=== PATIENT | male | born 1970 | race Caucasian/White ===

== ENCOUNTER 2019-11-25 01:37 | Emergency (ER) | payer BC ==
[2019-11-25] MEDS ORDERED: Acetaminophen/oxyCODONE 325-5 MG Tab PO ONE ×2 (01:38→02:32)
[2019-11-25 01:41] VITALS: PULSE 85
[2019-11-25] MEDS ORDERED: Take Home: Acetaminophen/oxyCODONE 325-5 MG, 2 Tab Pack PO ONE (02:32)
[2019-11-25 02:38] VITALS: BP 125/67
--- NOTE | 2019-11-25 02:43 | EDM.PDOC ---
ED HPI GENERAL MEDICAL PROBLEM - General Chief Complaint: Lower Extremity Injury/Pain Stated Complaint: L)ankle injury Time Seen by Provider: 11/25/19 01:56 Source of Information: Reports: Patient, Family History Limitations: Reports: No Limitations - History of Present Illness INITIAL COMMENTS - FREE TEXT/NARRATIVE: Patient to the emergency department where he advised he slipped and fell approximately 1 hour prior to arrival. And has pain and deformity to the left ankle. The patient denies hitting his head there is no loss of consciousness. The patient denies any knee pain denies any hip pain the patient denies any neck or back pain. The patient denies any numbness or tingling to the extremity. The patient has no other complaints Onset: Today Duration: Hour(s): Location: Reports: Lower Extremity, Left Quality: Reports: Ache, Throbbing Severity: Moderate Improves with: Reports: None Worsens with: Reports: Movement Context: Reports: Other (Slipped and fell on the ice) Associated Symptoms: Denies: Chest Pain, Headaches, Nausea/Vomiting, Shortness of Breath, Syncope, Weakness Treatments HEEL TURNER: Reports: Other (see below) (No treatment) Left Ankle Pain Score (Numeric/FACES): 6 - Related Data Allergies Allergy/AdvReac Type Severity Reaction Status Date / Time No Known Allergies Allergy Verified 11/25/19 01:42 Home Meds: Home Meds . [No Known Home Meds] 11/25/19 [History] Past Medical History - Past Health History Medical/Surgical History: Denies Medical/Surgical History - Past Surgical History Other HEENT Surgeries/Procedures: INNER EAR SURGERY Social & Family History - Family History Family Medical History: Noncontributory - Tobacco Use Smoking Status *Q: Never Smoker - Caffeine Use Caffeine Use: Reports: None - Recreational Drug Use Recreational Drug Use: No Review of Systems - Review of Systems Review Of Systems: See Below Constitutional: Reports: No Symptoms Eyes: Reports: No Symptoms Ears: Reports: No Symptoms Nose: Reports: No Symptoms Mouth/Throat: Reports: No Symptoms Respiratory: Reports: No Symptoms Cardiovascular: Reports: No Symptoms GI/Abdominal: Reports: No Symptoms Genitourinary: Reports: No Symptoms Musculoskeletal: Reports: Joint Pain (Left ankle). Denies: Neck Pain, Back Pain Skin: Reports: No Symptoms. Denies: Bruising, Rash, Erythema Neurological: Reports: No Symptoms. Denies: Headache, Numbness, Tingling, Weakness Psychiatric: Reports: No Symptoms ED EXAM, GENERAL - Physical Exam Exam: See Below Exam Limited By: No Limitations General Appearance: Alert, WD/WN, Mild Distress, Obese Ears: Normal External Exam Nose: Normal Inspection Throat/Mouth: Normal Inspection, Normal Lips, Normal Voice, No Airway Compromise Head: Atraumatic, Normocephalic Neck: Normal Inspection, Supple, Non-Tender, Full Range of Motion Respiratory/Chest: No Respiratory Distress, Lungs Clear, Normal Breath Sounds, No Accessory Muscle Use, Chest Non-Tender Cardiovascular: Normal Peripheral Pulses, Regular Rate, Rhythm, No Murmur Peripheral Pulses: 2+: Radial (L), Posterior Tibial (L), Dorsalis Pedis (L) GI/Abdominal: Soft, Non-Tender Back Exam: Normal Inspection, Full Range of Motion Extremities: Normal Capillary Refill, Other (Deformity left ankle). No: Normal Inspection Neurological: Alert, Oriented, Normal Cognition, No Motor/Sensory Deficits Psychiatric: Normal Affect, Normal Mood Skin Exam: Warm, Dry, Intact, Normal Color ED TRAUMA EXTREMITY PROCEDURES - Splinting Left Lower Extremity Pre-Procedure NV Status: Normal Post-Procedure NV Status: Normal Splint Material: Other (Ortho-Glass) Splint Design: Volar, Gutter Applied & Form Fitted By: Provider Provider Post-Splint Application NV Check: NV Status Normal, Good Position Complications: No Course - Vital Signs Text/Narrative:: The patient was evaluated in the emergency department. X-ray of the left ankle was obtained and does show a fracture dislocated left ankle. The patient's distal pulse motor sensory is intact. After explaining to the patient the need to reduce the fracture and dislocation he agreed to proceed. With gentle traction this was easily reduced without any difficulty. Following the reduction the distal pulse motor sense remained intact capillary refill to all digits is less than 2 seconds with normal sensation. A posterior Ortho-Glass splint followed by steerable splint was placed by this provider and secured with an Dean wrap. Before applying the splint a cotton sock as well as cotton padding was placed. Postreduction film reveals a successfully reduced left ankle dislocation and the fractured distal fibula appeared to be aligned very well. The patient was given Percocet 5/325 mg 1 p.o. in the emergency department he will be given medication for take-home and a prescription for Percocet 5/325 mg 1 every 6 hours as needed for pain #12. The patient will follow up with the orthopedic doctor this week I did call and speak to the emergency department physician in [place] and they do have 2 orthopedic doctors as well as 1 moveman who would be able to see the patient on Wednesday. This was discussed with the patient and he agrees with this disposition. The patient is also advised the need to keep his leg elevated and apply ice off and on for the next 2 days. He is advised if he develops any swelling or the splint becomes tight he is to take the Dean wrap off and rewrap looser or return to the emergency department he also agrees with this. The patient was further advised if he has any problems getting into the orthopedic doctor on Wednesday he is to call here in the clinic for help in arranging the evaluation by the orthopedic doctor. Last Recorded V/S: Last Vital Signs Temp 36.1 C 11/25/19 01:38 Pulse 85 11/25/19 01:38 Resp 18 11/25/19 01:38 BP 82/53 L 11/25/19 01:38 Pulse Ox 98 11/25/19 01:38 - Orders/Labs/Meds Orders: Active Orders 24 hr Category Date Time Status Ankle Min 3V Lt [CR] Routine Exams 11/25/19 Ordered Meds: Medications Discontinued Medications Generic Name Dose Route Start Last Admin Trade Name Nico PRN Reason Stop Dose Admin Oxycodone/Acetaminophen 1 tab 11/25/19 02:32 Percocet 325-5 Mg PO 11/25/19 02:33 ONETIME ONE Oxycodone/Acetaminophen 2 packet 11/25/19 02:32 Take Home: Acetaminophen/Oxycodon, 2 Tab Pack PO 11/25/19 02:33 ONETIME ONE Departure - Departure Time of Disposition: 02:43 Disposition: Home, Self-Care 01 Condition: Good Clinical Impression: Closed left ankle fracture, Dislocation of ankle, left, closed, Fall - Discharge Information *PRESCRIPTION DRUG MONITORING PROGRAM REVIEWED*: Yes *COPY OF PRESCRIPTION DRUG MONITORING REPORT IN PATIENT CATERINA: Yes Instructions: Ankle Dislocation, [id number], Crutch Use, Adult, [id number] , Closed Reduction for Ankle Fracture or Dislocation, Care After, Ankle Fracture , [id number] Referrals: PCP,None [Primary Care Provider] - Additional Instructions: Elevate your left ankle on 2 pillows Do not let your leg be dangling down as this will cause increase in swelling Percocet 5/325 mg 1 every 6 hours as needed for pain Ice off and on frequently to your left ankle for 2 days Follow-up with the orthopedic clinic in [place] on Wednesday call early Wednesday morning for an appointment time If you have any trouble getting to the orthopedic doctor, call the [facility] or the emergency department or the nursing staff on Wednesday health aid to have have help setting up an appointment time Use the crutches and absolutely no weightbearing on your ankle If you become worse to have any problems return to the emergency department Sepsis Event Note - Evaluation Sepsis Screening Result: No Definite Risk - Focused Exam Vital Signs: Vital Signs Temp Pulse Resp BP Pulse Ox 11/25/19 01:38 36.1 C 85 18 82/53 L 98 Date Exam was Performed: 11/25/19 Time Exam was Performed: 02:37 - Problem List & Annotations (1) Closed left ankle fracture SNOMED Code(s): 69492961 Code(s): S82.892A - OTH FRACTURE OF LEFT LOWER LEG, INIT FOR CLOS FX Status : Acute Priority: High Current Visit: Yes Qualifiers: Encounter type: initial encounter Qualified Code(s): S82.892A - Other fracture of left lower leg, initial encounter for closed fracture (2) Dislocation of ankle, left, closed SNOMED Code(s): 477021987 Code(s): S93.05XA - DISLOCATION OF LEFT ANKLE JOINT, INITIAL ENCOUNTER Status: Acute Current Visit: Yes Qualifiers: Encounter type: initial encounter Qualified Code(s): S93.05XA - Dislocation of left ankle joint, initial encounter (3) Fall SNOMED Code(s): 7487269, 711555906 Code(s): W19.XXXA - UNSPECIFIED FALL, INITIAL ENCOUNTER Status: Acute Priority: Medium Current Visit: Yes Qualifiers: Encounter type: initial encounter Qualified Code(s): W19.XXXA - Unspecified fall, initial encounter - Problem List Review Problem List Initiated/Reviewed/Updated: Yes - My Orders Last 24 Hours: My Active Orders 11/25/19 Ankle Min 3V Lt [CR] Routine - Assessment/Plan Last 24 Hours: My Active Orders 11/25/19 Ankle Min 3V Lt [CR] Routine Plan: See the course for complete details
[2019-11-25] MEDS ORDERED: Acetaminophen/oxyCODONE 325-5 MG Tab ONE (03:11)
== END 2019-11-25 03:21 | disposition home or self-care (01) ==
LOC: CC.ED 01:37
DX: S82.832A Other fracture of upper and lower end of left fibula, initial encounter for closed fracture (principal); W01.0XXA Fall on same level from slipping, tripping and stumbling without subsequent striking against object, initial encounter
CPT/HCPCS: 27840; 73600; 73610; 99283; A9270